=== PATIENT | male | born 1955 | race Caucasian/White ===

== ENCOUNTER 2020-05-11 19:30 | Outpatient (CLI) | payer MEDICARE, OTHER | END 2020-05-11 19:31 | disposition home or self-care (01) | LOC: SLEEPLAB 19:30 | PROVIDERS: ATTEND Family Medicine | DX: G47.33 Obstructive sleep apnea (adult) (pediatric) (principal); R06.83 Snoring; G47.00 Insomnia, unspecified; G47.10 Hypersomnia, unspecified | CPT/HCPCS: 95810 ==

== ENCOUNTER 2020-06-23 06:32 | Outpatient (CLI) | payer MEDICARE, OTHER ==
[2020-06-23 11:24] LABS: Hemoglobin 16.1 g/dL (14.0-18.0)
[2020-06-23 11:51] LABS: Anion Gap 14 mmol/L (10-20); BUN (Urea Nitrogen) 18 mg/dL (8.4-25.7); Calc. Creatinine Clearance 0 mL/min (70-130); Calcium 9.7 mg/dL (7.8-10.44); Carbon Dioxide 27 mmol/L (23-31); Chloride 104 mmol/L (98-107); Glucose 96 mg/dL (80-115); Potassium 4.7 mmol/L (3.5-5.1); Sodium 140 mmol/L (136-145)
[2020-06-24 01:28] LABS: SARS-CoV-2 MS2 Positive; SARS-CoV-2 N Gene Negative; SARS-CoV-2 S Gene Negative; SARS-CoV-2 by NAA Not Detected (NotDetected); SARS-CoV-2 orf1ab Negative
== END 2020-06-23 06:33 | disposition home or self-care (01) ==
LOC: LABBT 06:32
PROVIDERS: ATTEND Specialist
DX: Z01.818 Encounter for other preprocedural examination (principal); Z20.828 Contact with and (suspected) exposure to other viral communicable diseases; J34.2 Deviated nasal septum; J34.89 Other specified disorders of nose and nasal sinuses; J34.3 Hypertrophy of nasal turbinates; G47.9 Sleep disorder, unspecified; R06.83 Snoring; R53.83 Other fatigue
CPT/HCPCS: 80048; 85014; 85018; 93005; U0003; 87635; 93010

== ENCOUNTER 2020-06-26 10:03 | Day surgery (SDC) | payer MEDICARE, OTHER ==
[2020-06-24 14:49] VITALS: BMI 25.0
[2020-06-26] MEDS ORDERED: ePHEDrine 50 MG/ML VIAL ONE (11:10)
[2020-06-26] MEDS ORDERED: PROPOFOL 200 MG/20 ML VIAL ONE (11:10)
[2020-06-26] MEDS ORDERED: Ondansetron PF 4 MG/2 ML Vial ONE (11:10)
[2020-06-26] MEDS ORDERED: Lidocaine 1% PF 5 ML VIAL ONE (11:10)
[2020-06-26] MEDS ORDERED: Dexamethasone 20 MG/5 ML VIAL ONE (11:10)
[2020-06-26] MEDS ORDERED: AFRIN NASAL MIST 15 ML BOT ONE ×2 (11:14→12:08)
[2020-06-26] MEDS ORDERED: Bacitracin Zinc Ointment 30 gm TUBE ONE (12:08)
[2020-06-26] MEDS ORDERED: EPINEPHrine 1 MG/ML AMP ONE (12:08)
[2020-06-26] MEDS ORDERED: Lidocaine 1% w/Epinephrine 1:100K 20 ML VIAL ONE (12:08)
[2020-06-26] MEDS ORDERED: Fentanyl 100 MCG/2 ML VIAL ONE (12:13)
--- NOTE | 2020-06-26 15:37 | OP ---
DATE OF PROCEDURE: 06/26/2020 PREOPERATIVE DIAGNOSES: Profound right septal deformity and hypertrophic inferior turbinates. POSTOPERATIVE DIAGNOSES: Profound right septal deformity and hypertrophic inferior turbinates. PROCEDURES PERFORMED: 1. Septoplasty. 2. Bilateral nasal endoscopy with submucosal resection of inferior turbinates. DESCRIPTION OF PROCEDURE: Septoplasty: After local anesthesia was infiltrated into the submucoperichondrial plane, a standard Arnulfo incision was made with a #15 blade down to the level of the septal cartilage. The caudal elevator was used to elevate the mucoperichondrium from the underlying cartilage. We then proceeded beyond the bony cartilaginous junction and elevated the bony periosteum as well. Great attention was paid to the spur to prevent rent formation in the septal flap. A transcartilaginous incision was then made, while preserving an adequate dorsal and caudal cartilaginous strut for tip support. The deformed cartilage was removed and disarticulated from the bony cartilaginous junction and maxillary crest. This was placed in saline and would later be crushed and returned to the mucoperichondrial envelope. We then elevated the contralateral periosteum from the bony cartilaginous region and removed the deformed portions of the bone and bony spurs. The cartilage was then crushed and placed back into the mucoperichondrial envelope and the mucosa was re-approximated with a quilting stitch composed of rapidly absorbent gut suture. The Pinon incision was also closed with interrupted gut suture. At the completion of the case, Felton splints were placed and suture secured to the caudal septum. Bilateral nasal endoscopy with submucosal resection of inferior turbinates: After consent was obtained, the patient was identified, brought to the operating room, and placed on the operating room table in the supine position. Consent was obtained, notifying the patient of the possibility of additional infections, bleeding, brain injury, and eye/orbital injury. The patient was placed on the operating room table, and general endotracheal anesthesia and intravenous access was obtained. The patient was then positioned, prepped and draped for endoscopic sinus surgery. Nasal preparation included trimming nasal vestibular hairs and spraying in topical Afrin. We then placed Afrin topical solution on nasal pledgets and strategically located them intranasally. The perinasal mucosa was injected with 1% lidocaine with 1:100,000 epinephrine in the submucoperichondrial plane of the septum, lateral nasal wall, and anterior to the uncinate. The patient was then prepped and draped in a sterile fashion and positioned for endoscopic sinus surgery. With the 0-degree endoscope, the patient underwent systematic nasal endoscopy. There were no suspicious internasal masses or lesions identified. We then focused our attention to the osteomeatal complex region under the middle turbinate. The inferior turbinates were visualized with a 0 degree endoscope and outfractured with a Eakly elevator. The inferior medial aspect was cauterized with the electrocautery. Hemostasis was obtained . After adequate airway was established, we turned our attention to the contralateral side and used a similar procedure. Again, a Mike elevator was used to outfracture inferior turbinates under endoscopic visualization. With a suction cautery, the free inferior medial aspect was cauterized under direct visualization along the length of the inferior turbinate. At this point, we then turned our attention to the contralateral side and proceeded with endoscopic sinus surgery. At the completion of the case, Rice keel splints were placed in the ethmoid cavities after the ethmoidectomy. There were no complications. The patient tolerated the procedure well and was discharged to the recovery room in stable condition prior to return to the preoperative day stay with ultimate discharge home. Prescriptions for pain medication and antibiotics were provided. The patient received intramuscular Depo-Medrol during the case. FINDINGS: The patient had a profound right septal spur that involved the length of the septum, including both cartilaginous and bony portions and the extreme hypertrophic inferior turbinates worse on the contralateral side. Job ID: [id number]
== END 2020-06-26 15:30 | disposition home or self-care (01) ==
LOC: SDC 10:03
PROVIDERS: ATTEND Specialist
PROC: 09SM0ZZ Reposition Nasal Septum, Open Approach (ICD-10-PCS; principal; 2020-06-26)
PROC: 09TL8ZZ Resection of Nasal Turbinate, Via Natural or Artificial Opening Endoscopic (ICD-10-PCS; 2020-06-26)
DX: J34.2 Deviated nasal septum (principal); J34.3 Hypertrophy of nasal turbinates; J34.89 Other specified disorders of nose and nasal sinuses; G47.9 Sleep disorder, unspecified; E78.5 Hyperlipidemia, unspecified; E03.9 Hypothyroidism, unspecified; M19.90 Unspecified osteoarthritis, unspecified site; Z87.891 Personal history of nicotine dependence; Z79.899 Other long term (current) drug therapy; Z88.0 Allergy status to penicillin
CPT/HCPCS: J0171; J1100; J2405; J2704; J3010; J3490

== ENCOUNTER 2023-06-09 08:57 | Outpatient (CLI) | payer MEDICARE, OTHER | END 2023-06-09 08:58 | disposition home or self-care (01) | LOC: BICULT 08:57 | PROVIDERS: ATTEND Family Medicine | DX: Z00.00 Encounter for general adult medical examination without abnormal findings (principal) | CPT/HCPCS: 76700 ==

== ENCOUNTER 2023-08-09 09:51 | Outpatient (CLI) | payer MEDICARE, OTHER | END 2023-08-09 09:52 | disposition home or self-care (01) | LOC: BICMRI 09:51 | PROVIDERS: ATTEND Orthopaedic Surgery | DX: M25.511 Pain in right shoulder (principal); M25.512 Pain in left shoulder; M25.572 Pain in left ankle and joints of left foot; M19.012 Primary osteoarthritis, left shoulder; M19.011 Primary osteoarthritis, right shoulder; S93.492A Sprain of other ligament of left ankle, initial encounter; S93.432A Sprain of tibiofibular ligament of left ankle, initial encounter; M19.072 Primary osteoarthritis, left ankle and foot; M62.572 Muscle wasting and atrophy, not elsewhere classified, left ankle and foot ==